=== PATIENT | male | born 1995 | race Caucasian/White ===

== ENCOUNTER 2017-11-12 03:10 | Emergency (ER) | payer SELFPAY ==
[2017-11-12 03:20] VITALS: TEMP 37.2; Ht 368.3 cm
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
[2017-11-12] MEDS ORDERED: LIDOCAINE 1% BUFFERED INJ 20 ML VIAL INFIL ONE (03:30)
[2017-11-12] MEDS ORDERED: DIPHTHERIA/TETANUS/PERTUSSIS 0.5 ML SYR/VIAL IM. ONE (03:30)
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
[2017-11-12] MEDS ORDERED: AMOX875T PO (05:19)
[2017-11-12] MEDS ORDERED: AMOXICILLIN/CLAVULANATE TAB 875 MG TAB PO ONE (05:45)
[2017-11-12 05:56] VITALS: BP 123/60; PULSE 77; O2SAT 97
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
== END 2017-11-12 06:00 | disposition home or self-care (01) ==
LOC: EDBD 03:10 → C.EDA 03:12
DX: S01.511A Laceration without foreign body of lip, initial encounter (principal); Y04.0XXA Assault by unarmed brawl or fight, initial encounter; Z88.8 Allergy status to other drugs, medicaments and biological substances; Z23 Encounter for immunization

== ENCOUNTER 2019-10-18 10:51 | Observation (INO) ==
[2019-10-18] MEDS ORDERED: SODIUM CHLORIDE 0.9% 1000ML 1,000 ML IV SCH (11:30)
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
[2019-10-18] MEDS ORDERED: LORazepam 2 MG/ML VIAL (IM USE) IM STA (11:46)
[2019-10-18] MEDS ORDERED: HALOPERIDOL LACTATE 5 MG/ML 1 ML VIAL IM STA (11:46)
[2019-10-18 12:48] LABS: Appearance Urine Turbid (Clear); Bacteria Urine Automated Negative (Negative); Bilirubin Urine Negative (Negative); Blood Urine Negative (Negative); Cast Urine Automated 0 /lpf (0-5); Color Urine Yellow; Epithelial Cell Urine Auto 0-5 /lpf (0-5); Glucose Urine UA Negative (Negative); Ketones Urine Negative (Negative); Leukocyte Esterase Urine Negative (Negative); Nitrite Urine Negative (Negative); Protein Urine Negative (Negative); RBC Urine Automated 0-4 /hpf (0-4); Specific Gravity Urine 1.016 (1.000-1.030); Urobilinogen Urine Negative (Negative); WBC Urine Automated 0 /hpf (0-5)
--- NOTE | 2019-10-18 13:11 | XRay Report ---
XR chest 1V portable CLINICAL HISTORY: psychosis mental status change COMPARISON STUDY: 11/12/2017 FINDINGS: The bones soft tissues and hemidiaphragms are normal. The cardiomediastinal silhouette is n ormal. The lungs are clear. The pulmonary vasculature is normal. IMPRESSION: Negative chest. ACT 112: Negative or not required by law. The above report was generated using voice recognition software. It may contain grammatical, syntax or spelling errors. Electronically signed by: Celso Stewart M.D. 10/18/2019 1:10 PM
[2019-10-18 13:15] LABS: Amphetamines+Metham, Urine Neg (Neg); Barbiturates, Urine Neg (Neg); Benzodiazepine, Urine Neg (Neg); Cocaine, Urine Neg (Neg); MDMA (Ecstacy), Urine Neg (Neg); Methadone, Urine Neg (Neg); Opiate, Urine Neg (Neg); Phencyclidine, Urine Neg (Neg)
--- NOTE | 2019-10-18 13:20 | CT Scan Report ---
CT SCAN OF THE BRAIN WITHOUT IV CONTRAST CLINICAL HISTORY: Psychosis. COMPARISON STUDY: CT of the brain dated 11/12/2017. TECHNIQUE: Unenhanced axial CT scan of the brain is performed from the vertex to the skull base. A d ose lowering technique was utilized adhering to the principles of ALARA. CT DOSE: 537.48 mGy.cm FINDINGS: Brain parenchyma: The brain parenchyma is normal in appearance. There is no hemorrhage, mass effect, or evidence of acute territorial ischemia by CT criteria. Bullard-white matter differentiation is preser chante. No extra-axial fluid collection is seen. Ventricles, sulci, cisterns: Normal in configuration. Intracranial vasculature: The visualized intracranial vasculature at the skull base is normal in appe arance. Calvarium: There is postoperative change from right-sided craniotomy. No depressed calvarial fracture is identified. Sinuses and mastoids: The visualized paranasal sinuses are clear. The mastoid air cells are well pneu matized. Orbits: The bony orbits are grossly intact. IMPRESSION: No acute intracranial abnormality. ACT 112: Negative or not required by law. Electronically signed by: Russel Galdamez M.D. 10/18/2019 1:19 PM
[2019-10-18 13:32] LABS: Basophils # (auto) 0.02 K/uL (0-0.2); Basophils % (auto) 0.3 %; Eosinophils # (auto) 0.06 K/uL (0-0.5); Eosinophils % (auto) 0.9 %; Hematocrit (blood only) 39.2 % (42-52); Immature Granulocytes # (auto) 0.01 K/uL (0.00-0.02); Immature Granulocytes % (auto) 0.2 %; Lymphocytes # (auto) 1.89 K/uL (1.2-3.4); Lymphocytes % (auto) 29.2 %; Mean Corpuscular Hemoglobin 30.7 pg (25-34); Mean Corpuscular Hgb Conc 35.7 g/dL (32-36); Mean Platelet Volume 9.9 fL (7.4-10.4); Monocytes % (auto) 7.7 %; Neutrophils % (auto) 61.7 %; Platelet Count 185 K/uL (130-400); RDW Coefficient of Variation 12.4 % (11.5-14.5); RDW Standard Deviation 39.1 fL (36.4-46.3); Red Blood Count 4.56 M/uL (4.7-6.1); White Blood Count 6.48 K/uL (4.8-10.8)
[2019-10-18 13:51] LABS: Albumin Level 3.7 gm/dl (3.4-5.0); BUN Creatinine Ratio 6.3 (10-20); Calcium 8.8 mg/dl (8.5-10.1); Est GFR (African American) 138.7; Est GFR (Non-African American) 119.7; Potassium 3.6 mmol/L (3.5-5.1)
[2019-10-18 14:00] LABS: Acetaminophen < 2 ug/ml (10-30); Salicylate 3.5 mg/dl (2.8-20)
[2019-10-18 14:01] LABS: Albumin Globulin Ratio 1.3 (0.9-2); Bilirubin,Total 0.4 mg/dl (0.2-1); Globulin 2.8 gm/dl (2.5-4.0); Thyroid Stimulating Hormone 0.319 uIu/ml (0.300-4.500); Total Protein 6.5 gm/dl (6.4-8.2)
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
[2019-10-18] MEDS ORDERED: ALUMINUM/MAGNESIUM SUSP 30 ML UDC PO PRN (17:08)
[2019-10-18] MEDS ORDERED: POLYETHYLENE (MIRALAX) 17 GM PACK PO PRN (17:08)
[2019-10-18] MEDS ORDERED: ONDANSETRON INJ 2 MG/ML 2 ML VIAL IV PRN (17:08)
[2019-10-18] MEDS ORDERED: HALOPERIDOL LACTATE 5 MG/ML 1 ML VIAL IM PRN (17:08)
[2019-10-18] MEDS ORDERED: ACETAMINOPHEN 325 MG TAB PO PRN (17:08)
[2019-10-18] MEDS ORDERED: MAGNESIUM HYDROXIDE SUSP 30 ML UDC PO PRN (17:08)
--- NOTE | 2019-10-18 17:46 | Magnetic Resonance Report ---
MRI OF THE BRAIN COMBO CLINICAL HISTORY: Seizure. Psychosis. COMPARISON STUDY: CT of the brain dated 10/18/2019. TECHNIQUE: MRI of the brain was performed utilizing various T1 and T2-weighted sequences in the axial , sagittal, and coronal planes. Contrast-enhanced sequences were acquired following the administratio n of 6 cc of Gadavist. The examination is performed using the seizure protocol. Coronal postcontrast sequences could not be acquired due to lack of patient cooperation. FINDINGS: Brain parenchyma: The brain parenchyma is normal in appearance. There is no hemorrhage or mass effect . There is no restricted diffusion to suggest acute ischemia. No enhancing mass lesion is identified on the postcontrast images. Bullard-white matter differentiation is preserved. No extra-axial fluid juan daniel ection is seen. A developmental venous anomaly is incidentally noted in the left occipital lobe. The cerebellar tonsils are normal in configuration. The hippocampi are normal and symmetric. Ventricles, sulci, and cisterns: Normal in configuration. Pituitary and sella: Unremarkable. Intracranial vasculature: Normal flow voids are maintained at the skull base. Orbits: The bony orbits are grossly intact. Orbital contents are normal in appearance. Sinuses and mastoids: Clear. Calvarium: Postcraniotomy change is noted along the right convexity. No destructive calvarial lesion is seen. Cervical cord: Partially visualized cervical spinal cord is normal in morphology and signal intensity . IMPRESSION: No acute intracranial abnormality. ACT 112: Negative or not required by law. Electronically signed by: Russel Galdamez M.D. 10/18/2019 5:45 PM
[2019-10-19] MEDS ORDERED: LORazepam 2 MG/4 ML VIAL IV PRN (00:03)
--- NOTE | 2019-10-19 05:03 | Electrocardiogram Report ---
Test Reason : Blood Pressure : / mmHG Vent. Rate : 063 BPM Atrial Rate : 063 BPM P-R Int : 160 ms QRS Dur : 100 ms QT Int : 370 ms P-R-T Axes : 063 083 045 degrees QTc Int : 378 ms Normal sinus rhythm Normal ECG No previous ECGs available Confirmed by Kristopher Resendiz ([id number]) on 10/19/2019 5:03:12 AM Referred By: REFERRED SELF Confirmed By:Kristopher Resendiz
--- NOTE | 2019-10-19 07:55 | Electroencephalogram ---
EEG Procedure Note Date of Service October 19, 2019 Start / End Times Start Time: 625 End Time: [address] Roman History 24-year-old with tonic-clonic activity and drug use with mental health issues. Home Medication List Home Medications Medication Instructions Recorded Confirmed Type Unobtainable 10/18/19 10/18/19 History Inpatient Medication List Discontinued Medications Haloperidol Lactate (Haldol) 5 mg IM NOW STA Stop: 10/18/19 11:47 Last Admin: 10/18/19 12:16 Dose: 5 mg Documented by: [id number] Sodium Chloride (Nss 1000ml) 1,000 mls @ 999 mls/hr IV .Q1H1M MARY Stop: 10/18/19 12:30 Last Infusion: 10/18/19 14:37 Dose: 0 mls/hr Documented by: [id number] Admin: 10/18/19 13:20 Dose: 999 mls/hr Documented by: [id number] Lorazepam (Ativan) 2 mg IM NOW STA Stop: 10/18/19 11:47 Last Admin: 10/18/19 12:16 Dose: 2 mg Documented by: [id number] Description This is a 21 electrode EEG with a single channel dedicated to limited EKG. The electrodes were placed in accordance with the International 10-20 system. Interpretation The predominant background activity consists of a fairly well modulated 9 Hz activity, of up to 30 mV in amplitude,seen symmetrically distributed over the posterior head regions bilaterally spreading anteriorly. This activity attenuates nicely with eye-opening and other alerting procedures. Photic stimulation was performed and elicited no change in the background activity and no abnormal responses were seen. Hyperventilation was not performed. A mild amount of muscle and movement artifact activity contaminated the recording, but did not hinder interpretation to any significant degree. Throughout the waking portion of the recording, no focal abnormalities, abnormal slow activity, or potentially epileptogenic discharges were seen. Towards the 1st half of the recording, the patient entered the drowsy state and brief periods of stage II sleep with no further activation. He was much more awake in the last 1/3 of recording. In summary, this EEG was normal during wakefulness and sleep. No focal abnormalities, potentially epileptogenic discharges, or abnormal slow activity were seen. Clinical Correlation The abscence of potentially epileptogenic activity does not exclude a seizure disorder, since interictally, EEGs can be normal. Clinical correlation is required. [facility] [place] EEG Procedure Codes Indication for Procedure (1) Tonic clonic seizures: (2) Altered mental state: (3) Substance abuse: Neurology Neurology: [id number] EEG include record awake & sleepy
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
--- NOTE | 2019-10-22 07:59 | Communication Note ---
Date of Service: October 22, 2019 Reviewed records; psychiatric consultation was requested for AMS, and patient signed out AMA before he could be seen.
[2019-10-22 15:54] LABS: Marijuana Quant, GCMS Urine 555 ng/mL (<5)
[2019-10-24 20:24] LABS: Synthetic Cannabinoid Qual Ur NEGATIVE (Negative)
== END 2019-10-19 08:07 | disposition home or self-care (01) ==
LOC: ED 10:51 → 2W 10:51 → SUATTDRO 14:29 → 2W 15:46